=== PATIENT | male | born 1950 | race Caucasian/White ===

== ENCOUNTER 2017-07-10 09:37 | Day surgery (SDC) | payer MEDICARE, OTHER ==
[2017-07-10] MEDS ORDERED: PROPOFOL 10 MG/ML VIAL IV ONE (09:38)
[2017-07-10] MEDS ORDERED: MIDAZOLAM HCL 2MG/2ML VIAL IV ONE (09:38)
[2017-07-10] MEDS ORDERED: LIDOCAINE 2% MDV (20MG/ML) 20ML VIAL IV ONE (09:38)
--- NOTE | 2017-07-13 09:50 | Operative Note ---
DATE OF SURGERY: 07/10/2017 SURGEON: Ela Van MD OPERATION: COLONOSCOPY. INDICATIONS: This is a 66-year-old male with family history of colorectal cancer who presented for screening colonoscopy. POSTOPERATIVE DIAGNOSES: 1. A 6 mm sessile polyp in the cecum that was removed by cold snare. 2. A 6 mm sessile polyp in the descending colon that was removed by cold snare. 3. Six 5-6 mm polyps in the rectum that were removed by cold snare. 4. Two 10-12 mm sessile polyps in the rectum that were removed by snare cautery. ANESTHESIA: Sedation is per Anesthesia. Pulse oximetry was monitored throughout the procedure to maintain O2 saturation of 90% or greater. Supplemental oxygen was administered via nasal cannula. Cardiac and vital signs were monitored throughout the duration of the procedure, and they were stable. The procedure of colonoscopy and risks and alternatives of the procedure, including the risk of bleeding and perforation, among others, were explained to the patient who voiced understanding and agreed to have the procedure done. Physical examination was performed, and the patient was found stable for sedation. PROCEDURE: The patient was placed in the left lateral position. Sedation was initiated. A digital rectal exam was performed and showed some mild external hemorrhoids with no palpable rectal masses. An Olympus PCF-180AL colonoscope was then inserted into the rectum under direct visualization. It was advanced to the cecum without difficulty. The ileocecal valve and appendiceal orifice were identified and photographed. The colonic mucosa was carefully examined upon introduction of the colonoscope. There were multiple colorectal polyps that were noted. The ileocecal valve was intubated and terminal ileal mucosa was inspected for about 10 cm and it appeared normal. The colonoscope was then withdrawn while carefully examining the colonic mucosal surfaces. In the cecum was a 6 mm sessile polyp that was noted and was removed by cold snare. The ascending colon and transverse colon appeared normal. In the descending colon was another 6 mm sessile polyp that was removed by cold snare. The sigmoid colon was normal. In the rectum were six 5-6 mm polyps that were noted and were removed by cold snare. They were adjacent to two 10-12 mm sessile polyps that were removed by snare cautery. Retroflexion revealed no other lesions. The colonoscope was then withdrawn and the procedure was terminated. The patient tolerated the procedure well without any immediate complications. He remained with stable vital signs and was transferred to the recovery room. RECOMMENDATIONS: 1. The patient should be on a low-residue diet for the next couple of weeks and thereafter to be on a high-fiber diet. 2. The patient is to avoid any aspirin or aspirin-like medications for 2 weeks. 3. The patient is to have repeat colonoscopy for surveillance in 3 years. Thank you for allowing me to participate in the care of your patient. CC: ELIANA BONNER MD, FACP [facility]
== END 2017-07-10 12:02 | disposition home or self-care (01) ==
LOC: HOP 09:37
PROVIDERS: ATTEND Internal Medicine Gastroenterology
DX: Z12.11 Encounter for screening for malignant neoplasm of colon (principal); Z80.0 Family history of malignant neoplasm of digestive organs; D12.2 Benign neoplasm of ascending colon; D12.0 Benign neoplasm of cecum; K62.1 Rectal polyp; I10 Essential (primary) hypertension